=== PATIENT | male | born 1980 | race Caucasian/White ===

== ENCOUNTER 2025-07-18 07:08 | Day surgery (SDC) | payer MEDICAID ==
[2025-07-10 15:31] LABS: MEAN PLATELET VOLUME 8.1 FL (7.4-10.4); PRE OP HEMATOCRIT 42.4 % (42.0-52.0); PRE OP HEMOGLOBIN 14.4 g/dL (14.0-17.9); PRE OP PLATELET COUNT 332 X10'3 (140-440); PRE OP WHITE BLOOD COUNT 9.2 10'3 (4.8-10.8); RED CELL DISTRIBUTION WIDTH 12.9 % (11.5-14.5)
--- NOTE | 2025-07-10 15:48 | ELECTROCARDIOGRAPH REPORT ---
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 ROWAN Bran Measurements Intervals Krebs Rate: 50 P: 76 ME: 152 QRS: 92 QRSD: 100 T: 71 QT: 424 QTc: 387 Interpretive Statements Sinus bradycardia Borderline right axis deviation ST elev, probable normal early repol pattern Electronically Signed On 07-10-2025 17:29:[address] ROWAN Bran Please click the below link to view image of tracing.
[2025-07-10 16:22] LABS: CREATININE 0.87 MG/DL (0.60-1.10); PRE OP ALT 41 U/L (30-65); PRE OP ANION GAP 7 (8-16); PRE OP AST 30 U/L (10-37); PRE OP BILIRUB, TOTAL 1.0 MG/DL (0.0-1.0); PRE OP GLUCOSE 98 MG/DL (70-104); PRE OP POTASSIUM 4.4 MMOL/L (3.4-5.1); PRE OP SODIUM 140 MMOL/L (135-145); TOTAL CARBON DIOXIDE 28.4 MMOL/L (24-32); eGFR > 90 ML/MIN
[2025-07-18] VITALS (16 sets, daily range): BP systolic 97–124; BP diastolic 57–90; PULSE 57–72; RESP 11–19; TEMP 97.5; O2SAT 96–99
[~2025-07-18] VITALS: Ht 186.7 cm; Wt 77.1 kg
[~2025-07-18 07:08] MED LIST: BUPIVAcaine/PF 2.5mg/ml (0.25%) 10ml vial ONE; LIDOcaine 1% 30ml preserv. free vial ONE; NO HOME MEDS; ringers solution, lacted 1,000 ML IV SCH
[2025-07-18] MEDS: ceFAZolin 2gm/dext,iso 50mL 50 ML IV ONE (07:13)
--- NOTE | 2025-07-18 08:53 | HISTORY AND PHYSICAL ---
History & Physical Providers to CC CC: SCHUYLER ESPINOZA MD ~ History of Present Illness Reason for Admit\Complaint: Right inguinal hernia History of Present Illness Interval history and physical exam Patient here today for elective repair of a right inguinal hernia He was seen in the office greater than 30 days ago but denies any change in his past medical history (please see previous history and physical exam for all pertinent details) He is scheduled for robotic assisted, laparoscopic right possible left inguinal hernia repair with mesh Allergies: Coded Allergies: meperidine (Verified Allergy, Unknown, 07/17/25) Uncoded Allergies: HAY FEVER (Allergy, Unknown, ITCHY EYES, SNEEZING, 07/17/25) Home Medications Home Medications Active Reported No Home Medications (Home Med List) Each Exam Vitals: Vital Signs Date Time Temp Pulse Resp B/P (MAP) Pulse Ox O2 Delivery O2 Flow Rate FiO2 07/18/25 07:43 59 16 97 07/18/25 07:22 Room Air General: 44-year-old male in no acute distress Chest: Lungs are clear to auscultation bilaterally Cardiovascular: Regular rate and rhythm without murmurs Abdomen: Soft and nondistended Right inguinal hernia Right side of the abdomen marked with indelible ink Problems: (1) Right inguinal hernia Status: Chronic Assessment & Plan: The risks, benefits, and alternatives to a robotic assisted, laparoscopic right possible left inguinal hernia repair with mesh were discussed with the patient. Risks include, but are not limited to, bleeding, infection, injury to intra-abdominal structures, hernia recurrence and chronic postoperative pain. Patient verbalized understanding and wishes to proceed with surgery. We will do so today as scheduled SCHUYLER ESPINOZA MD Jul 18, 2025 08:53
[2025-07-18] MEDS ORDERED: acetaminophen 1,000mg/100ml IV 100 ML IV PRN (08:55)
[2025-07-18] MEDS ORDERED: HYDROmorphone/PF 0.2 MG/ML SYRINGE IV PRN (08:55)
[2025-07-18] MEDS ORDERED: morphine 4 MG/ML inj SYRINge IV PRN (08:55)
[2025-07-18] MEDS ORDERED: ringers solution, lacted 1,000 ML IV SCH (08:55)
[2025-07-18] MEDS ORDERED: labetalol 20mg/4ml (5mg/ml) syringe IV PRN (08:55)
[2025-07-18] MEDS ORDERED: hydrALAZINE 20mg/ml inj. IV PRN (08:55)
[2025-07-18] MEDS ORDERED: fentaNYL/PF 50MCG/1 ML 2ML syringe ONE ×2 (09:01→09:42)
[2025-07-18] MEDS ORDERED: midazolam 1 mg/ML 2ml injection ONE (09:02)
[2025-07-18] MEDS ORDERED: propofol inj 20 ML IV ONE (09:42)
[2025-07-18] MEDS ORDERED: rocuronium 10mg/ml inj IV ONE (09:42)
[2025-07-18] MEDS: LIDOcaine 1% 30ml preserv. free vial IJ ONE (09:46)
[2025-07-18] MEDS: BUPIVAcaine/PF 2.5mg/ml (0.25%) 10ml vial IJ ONE (09:46)
[2025-07-18] MEDS ORDERED: glycopyrrolate 0.2mg/ml inj ONE (10:04)
[2025-07-18] MEDS ORDERED: dexamethasone sod phosphate 4mg/ml inj. ONE (10:04)
[2025-07-18] MEDS ORDERED: ondansetron/PF 4mg/2ml inj ONE (10:04)
--- NOTE | 2025-07-18 10:41 | OPERATIVE REPORT ---
Operative Report Providers to CC CC: ANICETO ESPINOZA MD ~ Date of Procedure: Jul 18, 2025 Pre-Operative Diagnosis: Right inguinal hernia Post-Operative Diagnosis SAME as PRE-Op Procedure Performed Robotic assisted, laparoscopic right inguinal hernia repair with mesh Surgeon: Aniceto Espinoza MD FACS [employer] None Anesthesiologist: Nico Hogue Type of Anesthesia: General Findings: Moderate-sized indirect right inguinal hernia Complications None Prosthetics\Implants used: Extra-large right Dextile mesh Estimated Blood Loss: Minimal Specimen Removed: None Description of Procedure: Patient was brought to the operating room and identified by the nursing staff and the attending physician. Patient was placed supine and general anesthesia was induced. Patient's abdomen was prepped and draped in standard sterile fashion. Preoperative antibiotics were given. Supraumbilical incision was made to allow for standard Drew entry technique. Laparoscope was inserted after insufflation. Bilateral, 8.5 mm robotic trochars were placed under laparoscopic guidance following administration of local anesthetic. The [employer] robotic arm was docked to the patient and instruments placed intra-abdominally under laparoscopic visualization. The left hemipelvis was examined and showed no evidence of left inguinal hernia. Preperitoneal flap was created and carried down to the symphysis pubis. The retropubic space of Retzius was developed and the bladder swept medially. Dissection was carried out laterally until an indirect-right hernia sac was identified. This was moderate in size. Hernia sac was completely mobilized and reduced. Peritoneum was completely dissected away from the cord structures The critical view of the myopectineal orifice was achieved. Dissection was carried out laterally to allow space for mesh deployment. An extra-large Dextile mesh and suture was passed intra-abdominally. Mesh was laid in the preperitoneal space covering both indirect, direct, and potential femoral and obturator hernias. Mesh laid without wrinkles or folds. 3 tacking sutures using 0 Ethibond were used to fix the mesh at the symphysis pubis, rectus abdominis, and just anterior to the anterior superior iliac spine. The peritoneal rent was then closed with running, 2/0, absorbable locking suture. Wil[place] were retrieved. Abdomen was deflated and secondary trochars removed. Fascia at the umbilical port site was closed with 0 Vicryl sutures. Skin incisions were closed with 4-0 Monocryl sutures in a subcuticular fashion. Sterile dressings were applied. Patient was awakened and taken to the postanesthesia care unit in stable condition. Counts repoted as correct: Yes ANICETO ESPINOZA MD Jul 18, 2025 10:41
[2025-07-18] MEDS: HYDROmorphone/PF 0.2 MG/ML SYRINGE IV PRN (10:54)
[2025-07-18] MEDS: ondansetron/PF 4mg/2ml inj IV PRN (10:54)
[2025-07-18] MEDS: HYDROcodone/acetaminophen 5mg/325mg tablet PO PRN (12:56)
[2025-07-18] MEDS: LidoCAINE 2% Topical Jelly 11mL syringe (UROJET) MM ONE (12:56)
== END 2025-07-18 13:20 | disposition home or self-care (01) ==
LOC: PAS 07:08
PROVIDERS: ATTEND Surgery
DX: K40.90 Unilateral inguinal hernia, without obstruction or gangrene, not specified as recurrent (principal); R00.1 Bradycardia, unspecified; R73.09 Other abnormal glucose; Z88.5 Allergy status to narcotic agent; Z98.890 Other specified postprocedural states; Z83.3 Family history of diabetes mellitus; Z80.8 Family history of malignant neoplasm of other organs or systems; Z87.891 Personal history of nicotine dependence
CPT/HCPCS: 36415; 49650; 80053; 82948; 85025; 93005; C1781; J1100; J1171; J2003; J2250; J2405; J2704; J2710; J3010; J3490; J7030; J7120; Q0164; S2900; Z7506; Z7508; Z7512; A4215; A4314; A4618